=== PATIENT | female | born 1965 | race Caucasian/White ===

== ENCOUNTER 2024-08-20 05:46 | Observation (INO) ==
[~2024-08-20 05:46] MED LIST: Bupivacaine 0.25% SDV 30 ML ONE; Naloxone 0.4 mg VIAL 0.4 mg/ml 1 ml VIAL IV PRN; Prochlorperazine 5 mg/ml 2 ml VIAL (10 mg) IV PRN; fentaNYL 100 mcg/2 ml 50 MCG/ML VIAL IV PRN
[2024-08-20] MEDS: Buffered Lidocaine 1% SYRIN 1 ml INTRADERM ONE (06:21)
[2024-08-20] MEDS ORDERED: ceFAZolin 2 GM PREMIX 2 GM/50 ML BAG ONE (06:23)
[2024-08-20] MEDS ORDERED: Tranexamic Acid 1 GM/100ML BAG 2,000 MG/200 ML BAG IV ONE (06:23)
[2024-08-20] MEDS ORDERED: Lidocaine 2% PF 5 ML VIAL ONE (06:30)
[2024-08-20] MEDS ORDERED: Dexamethasone IV 4 MG/ML VIAL 1 ml VIAL ONE (06:30)
[2024-08-20] MEDS ORDERED: Propofol 10 MG/ML 20 ML BTL ONE (06:30)
[2024-08-20] MEDS ORDERED: Rocuronium 50 mg VIAL 10 mg/ml 5 ml VIAL (50 mg) ONE ×2 (06:30→08:16)
[2024-08-20] MEDS ORDERED: Ondansetron 4 mg VIAL 2 MG/ML 2 ml VIAL ONE (06:30)
[2024-08-20] MEDS ORDERED: Midazolam 2 mg/2 ml VIAL 1 mg/ml 2 ml VIAL (2 mg) ONE (06:31)
[2024-08-20] MEDS ORDERED: fentaNYL 250 mcg/5 ml 50 MCG/ML 5 ml VIAL (250 MCG) ONE ×2 (06:31→07:52)
[2024-08-20 06:36] LABS: Rapid COVID-19 Molecular Undetected (Undetected)
[2024-08-20] MEDS: Lactated Ringers 1000 ml BAG 1,000 ML IV SCH ×2 (06:49→12:51)
[2024-08-20] MEDS ORDERED: Bupivacaine 0.25% SDV 30 ML ONE (07:00)
[2024-08-20] MEDS ORDERED: HYDROmorphone 0.5 MG/0.5 ML SYRINGE ONE (07:52)
[2024-08-20] MEDS ORDERED: fentaNYL 100 mcg/2 ml 50 MCG/ML VIAL ONE ×2 (09:20→10:01)
[2024-08-20] MEDS ORDERED: Ondansetron ODT 4 mg TAB 4 MG TAB PO PRN (10:47)
[2024-08-20] MEDS ORDERED: Ondansetron 4 mg VIAL 2 MG/ML 2 ml VIAL IV PRN (10:47)
[2024-08-20] MEDS ORDERED: Lactulose 30 ml UDC PO PRN (10:47)
[2024-08-20] MEDS ORDERED: Calcium Carb (TUMS) 500 mg CHEW TAB PO PRN (10:47)
[2024-08-20] MEDS ORDERED: Magnesium Hydroxide LIQ 30 ML UDC PO PRN (10:47)
[2024-08-20] MEDS ORDERED: Morphine 2 MG/ML SYRINGE IV PRN (10:47)
[2024-08-20] MEDS ORDERED: Dextrose 50% Syringe 50 ml 25 GM/50 ML SYRINGE IV PUSH PRN (12:49)
[2024-08-20] MEDS: BUPIVACAINE **LIPOSOME/PF 13.3 MG/ML (266MG/ 20ML) VIAL (RESTRICTED) INFIL ONE (13:17)
[2024-08-20] MEDS: Insulin GLARGINE 100 un/ml 10 ml VIAL SUBCUT ONE (13:49)
[2024-08-20] MEDS: ceFAZolin 2 GM PREMIX 2 GM/50 ML BAG IV SCH (15:16)
[2024-08-20] MEDS ORDERED: Magnesium Hydroxide LIQ 30 ML UDC PO SCH (21:00)
[2024-08-21] MEDS ORDERED: Vitamin THERAPEUTIC TAB PO SCH (09:00)
== END 2024-08-20 16:00 | disposition home or self-care (01) ==
LOC: OR 05:46 → SSU 05:46
PROVIDERS: ADMIT Orthopaedic Surgery Sports Medicine; ATTEND Orthopaedic Surgery Sports Medicine